=== PATIENT | male | born 1970 | race Caucasian/White ===

== ENCOUNTER 2018-02-08 02:33 | Emergency (ER) | payer OTHER | END 2018-02-08 03:50 | disposition home or self-care (01) | LOC: ER 02:33 | DX: S00.83XA Contusion of other part of head, initial encounter (principal); F10.129 Alcohol abuse with intoxication, unspecified; E11.9 Type 2 diabetes mellitus without complications; I10 Essential (primary) hypertension; Z88.0 Allergy status to penicillin; Y04.2XXA Assault by strike against or bumped into by another person, initial encounter; Y93.89 Activity, other specified; Y99.8 Other external cause status; Y92.89 Other specified places as the place of occurrence of the external cause | CPT/HCPCS: 70450; 70486; 99284-25 ==